=== PATIENT | female | born 1985 | race Caucasian/White ===

== ENCOUNTER 2017-02-21 13:45 | Emergency (ER) | payer MEDICAID ==
[~2017-02-21] VITALS: Ht 162.6 cm; Wt 58.3 kg
[~2017-02-21 13:45] MED LIST: IBUP600 PO; OXYC1SOL5 PO; PERI8.6T PO; PRENCAP35 PO; RANI150 PO
[2017-02-21 13:54] VITALS: BP 134/69; PULSE 74; RESP 16; TEMP 98; O2SAT 99
--- NOTE | 2017-02-21 14:34 | PD ---
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 SHe says that she had intercourse last night. When she got up this morning she noted there was some blood in her hands. Been having right lower quadrant pain. The pain has been quite severe. He has a history of 2 C-sections and has 2 children. She has had an ectopic and has had tubal ligation. She has also had appendectomy done. The pain she is having is greater on the right side. He had an ultrasound of the pelvis on January 29 that showed that she had a 2.5 cm complicated cyst on the left ovary. Was otherwise negative. She has a history of endometriosis PFSH Past Medical History Asthma: Yes Blood Disorders: No Depression: Yes Heart Rhythm Problems: No Cancer: Yes High Cholesterol: No Chemotherapy: No Chest Pain: No Congestive Heart Failure: No COPD: No Cerebrovascular Accident: No Diminished Hearing: No Endocrine: No Gastrointestinal Disorders: Yes GERD: Yes Headaches: Yes (migraines) Hepatitis: No Hiatal Hernia: No Hypertension: No Immune Disorder: No Kidney Stones: No Musculoskeletal: Yes (injury from horse- FX LEFT SHOULDER/LEFT ANKLE) Neurologic: No Psychiatric: No Respiratory: No Integumentary: Yes (ECZEMA) Immunizations Current: Yes Radiation Therapy: No Renal Failure: No Seizures: Yes (apr 11 2004 last seizure) Sickle Cell Disease: No Sleep Apnea: No Thyroid Disease: Yes (HX OF HYPER ACTIVE THYROID) Ulcer: No ?: Not LMP: 02/07/17 : 3 Para: 1 Miscarriage: 1 : 1 Ectopic : Yes Past Surgical History Abdominal Surgery: Yes AICD: No Appendectomy: Yes Cardiac Surgery: No Section: Yes Ear Surgery: No Endocrine Surgery: No Eye Surgery: No Genitourinary Surgery: No Gynecologic Surgery: Yes (R SALPINGECTOMY 08-13-13) Neurologic Surgery: No Oral Surgery: No Pacemaker: No Thoracic Surgery: No Other Surgery: Yes Social History Alcohol Use: No Tobacco Use: Yes (half pack cigarettes a day for the entire ) Substance Use: No Allergies-Medications (Allergen,Severity, Reaction): Coded Allergies: penicillin G (Unverified Allergy, Severe, ITCHING, HIVES, anaphylaxis, 02/21/17) cyclobenzaprine (Unverified Allergy, Unknown, NAUSEA/VOMITTING, 02/21/17) Reported Meds & Prescriptions Reported Meds & Active Scripts Active Review of Systems General / Constitutional: No: Fever, Chills Eyes: No: Diploplia, Blurred Vision HENT: No: Headaches, Vertigo Cardiovascular: No: Chest Pain or Discomfort, Palpitations Respiratory: No: Cough, Shortness of Breath Gastrointestinal: No: Nausea, Vomiting Genitourinary: Positive: Pelvic Pain, Vaginal Bleeding, No: Urgency, Frequency Physical Exam Narrative GENERAL well-developed female SKIN: Focused skin assessment warm/dry. HEAD: Atraumatic. Normocephalic. EYES: Pupils equal and round. No scleral icterus. No injection or drainage. ENT: No nasal bleeding or discharge. Mucous membranes pink and moist. NECK: Trachea midline. No JVD. CARDIOVASCULAR: Regular rate and rhythm. No murmur appreciated. RESPIRATORY: No accessory muscle use. Clear to auscultation. Breath sounds equal bilaterally. GASTROINTESTINAL: Abdomen soft, non-tender, nondistended. Hepatic and splenic margins not palpable. Pelvic: There is some suprapubic tenderness. There is a small amount of blood coming from the cervical os. There is some pain with movement of the cervix. No definite adnexal mass MUSCULOSKELETAL: No obvious deformities. No clubbing. No cyanosis. No edema. NEUROLOGICAL: Awake and alert. No obvious cranial nerve deficits. Motor grossly within normal limits. Normal speech. PSYCHIATRIC: Appropriate mood and affect; insight and judgment normal. 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/Non-Preg (02/21/17 14:35) Beta Hcg (Quant/Titer) (02/21/17 14:20) Ketorolac Inj (Toradol Inj) (02/21/17 15:30) Labs Laboratory Tests Test 02/21/17 14:37 White Blood Count 10.0 TH/MM3 Red Blood Count 4.13 MIL/MM3 Hemoglobin 13.0 GM/DL Hematocrit 37.7 % Mean Corpuscular Volume 91.2 FL Mean Corpuscular Hemoglobin 31.4 PG Mean Corpuscular Hemoglobin Concent 34.4 % Red Cell Distribution Width 11.9 % Platelet Count 190 TH/MM3 Mean Platelet Volume 8.2 FL Neutrophils (%) (Auto) 71.8 % Lymphocytes (%) (Auto) 18.2 % Monocytes (%) (Auto) 8.5 % Eosinophils (%) (Auto) 1.0 % Basophils (%) (Auto) 0.5 % Neutrophils # (Auto) 7.3 TH/MM3 Lymphocytes # (Auto) 1.8 TH/MM3 Monocytes # (Auto) 0.8 TH/MM3 Eosinophils # (Auto) 0.1 TH/MM3 Basophils # (Auto) 0.0 TH/MM3 CBC Comment DIFF FINAL Differential Comment Blood Urea Nitrogen 16 MG/DL Creatinine 0.62 MG/DL Random Glucose 98 MG/DL Calcium Level 8.1 MG/DL Sodium Level 138 MEQ/L Potassium Level 3.6 MEQ/L Chloride Level 105 MEQ/L Carbon Dioxide Level 27.1 MEQ/L Anion Gap 6 MEQ/L Estimat Glomerular Filtration Rate 112 ML/MIN Human Chorionic Gonadotropin, Quant LESS THAN 1 MIU/ML MDM Medical Decision Making Medical Screen Exam Complete: Yes Emergency Medical Condition: Yes Medical Record Reviewed: Yes Differential Diagnosis Differential includes PID, ruptured cyst, ectopic Narrative Course Her beta hCG is less than 1. Hemoglobin is 13 with a white count of 10,000. Presentation is most consistent with a ruptured cyst. Diagnosis Primary Impression: Ovarian cyst Jim Bailon MD Feb 21, 2017 14:34
[2017-02-21 14:43] LABS: AUTOMATED NEUTROPHIL # 7.3 TH/MM3 (1.8-7.7); BASOPHIL % 0.5 % (0.0-2.0); EOSINOPHIL # 0.1 TH/MM3 (0-0.4); HEMATOCRIT 37.7 % (35.0-46.0); HEMO FLAGS DIFF FINAL; LYMPH % 18.2 % (9.0-44.0); LYMPHOCYTE # 1.8 TH/MM3 (1.0-4.8); MEAN CELL VOLUME 91.2 FL (80.0-100.0); MEAN CORPUSCULAR HEMOGLOBIN 31.4 PG (27.0-34.0); MEAN CORPUSCULAR HGB CONC 34.4 % (32.0-36.0); MONO % 8.5 % (0.0-8.0); NEUT % 71.8 % (16.0-70.0); PLATELET COUNT 190 TH/MM3 (150-450); RED BLOOD COUNT 4.13 MIL/MM3 (4.00-5.30); RED CELL DISTRIBUTION WIDTH 11.9 % (11.6-17.2)
[2017-02-21 14:57] LABS: CHLORIDE 105 MEQ/L (98-107); POTASSIUM 3.6 MEQ/L (3.5-5.1); SODIUM (NA) 138 MEQ/L (136-145)
[2017-02-21 15:00] LABS: ANION GAP 6 MEQ/L (5-15); BICARBONATE 27.1 MEQ/L (21.0-32.0); BLOOD UREA NITROGEN 16 MG/DL (7-18)
[2017-02-21 15:03] LABS: GLOMERULAR FILTRATION RATE 112 ML/MIN (>89)
[2017-02-21 15:08] LABS: BETA HCG QUANT LESS THAN 1 MIU/ML (0-5)
[2017-02-21] MEDS ORDERED: KETOROLAC TROMETHAMINE 30 MG/ML (IVP) VIAL IV PUSH ONE (15:30)
[2017-02-21] MEDS ORDERED: HYDR-3516 PO (15:46)
--- NOTE | 2017-02-21 16:15 | RADRPT ---
EXAM DATE/TIME: 02/21/2017 14:52 [facility] COMPARISON: US PELVIS, PREG, W/TRANSVAGINAL, August 24, 2005, 0:36. EXTERNAL COMPARISON : [facility], US PELVIS - COMPLETE, January 29, 2017 INDICATIONS : Pelvic bleeding. MEDICAL HISTORY : Hyperthyroidism. Endometriosis. Seizures. Syncope. Migraines. Asthma. GERD. Ectopic . PT SD. Eczema. Cancer. SURGICAL HISTORY : Appendectomy. section. Tubal ligation. Right salpingectomy. ENCOUNTER: Initial ACUITY: 1 day PAIN SCORE: 10/10 LOCATION: Bilateral pelvis MEASUREMENTS: UTERUS: 8.3 x 5.7 x 3.4 cm ENDOMETRIAL STRIPE: 8 mm RIGHT OVARY: 2.7 x 1.8 x 2.5 cm LEFT OVARY: 2.6 x 2.0 x 1.7 cm FINDINGS: UTERUS: The myometrium has homogeneous echotexture without mass. RIGHT OVARY: Ovary contains no mass or significant cystic lesion. Follicles are present. LEFT OVARY: Ovary contains no mass or significant cystic lesion. Follicles are present. MISCELLANEOUS: There is trace free fluid in the posterior cul-de-sac. Urinary bladder is under distended. CONCLUSION: 1. The urinary bladder is underdistended resulting in less than optimal visualization of the pelvic o rgans. 2. There is trace free fluid in the posterior cul-de-sac. Otherwise, examination is within normal laughlin its. Harrison Kumar MD on February 21, 2017 at 16:11 Board Certified Radiologist. This report was verified electronically.
--- NOTE | 2017-02-21 16:28 | PD ---
Physical Exam Date Seen by Provider: Feb 21, 2017 Time Seen by Provider: 16:26 Narrative 31-year-old female came to the emergency room for vaginal bleeding and pelvic pain. She was seen by the previous ER physician. Please refer to his history and physical regarding further details. Case was signed out to me to follow-up on her ultrasound results. The ultrasound report is read by the radiologist which shows some fluid in the cul-de-sac. Patient has history of ovarian cysts as of an ultrasound 4 months ago. Today the report did not treat any cyst. There is a possibility that the cyst has ruptured. I informed the patient about the report. She will be discharged home. Data Data Last Documented VS Vital Signs Date Time Temp Pulse Resp B/P (MAP) Pulse Ox O2 Delivery O2 Flow Rate FiO2 02/21/17 16:53 81 18 122/78 (93) 99 02/21/17 13:54 98.0 Orders Orders Complete Blood Count With Diff (02/21/17 14:20) Basic Metabolic Panel (Bmp) (02/21/17 14:20) Ed Urine Pregnancytest Poc (02/21/17 14:20) Us Pelvis Comp Wrapper Stripper/Non-Preg (02/21/17 14:35) Beta Hcg (Quant/Titer) (02/21/17 14:20) Ketorolac Inj (Toradol Inj) (02/21/17 15:30) Ed Discharge Order (02/21/17 16:25) Labs Laboratory Tests Test 02/21/17 14:37 White Blood Count 10.0 TH/MM3 Red Blood Count 4.13 MIL/MM3 Hemoglobin 13.0 GM/DL Hematocrit 37.7 % Mean Corpuscular Volume 91.2 FL Mean Corpuscular Hemoglobin 31.4 PG Mean Corpuscular Hemoglobin Concent 34.4 % Red Cell Distribution Width 11.9 % Platelet Count 190 TH/MM3 Mean Platelet Volume 8.2 FL Neutrophils (%) (Auto) 71.8 % Lymphocytes (%) (Auto) 18.2 % Monocytes (%) (Auto) 8.5 % Eosinophils (%) (Auto) 1.0 % Basophils (%) (Auto) 0.5 % Neutrophils # (Auto) 7.3 TH/MM3 Lymphocytes # (Auto) 1.8 TH/MM3 Monocytes # (Auto) 0.8 TH/MM3 Eosinophils # (Auto) 0.1 TH/MM3 Basophils # (Auto) 0.0 TH/MM3 CBC Comment DIFF FINAL Differential Comment Blood Urea Nitrogen 16 MG/DL Creatinine 0.62 MG/DL Random Glucose 98 MG/DL Calcium Level 8.1 MG/DL Sodium Level 138 MEQ/L Potassium Level 3.6 MEQ/L Chloride Level 105 MEQ/L Carbon Dioxide Level 27.1 MEQ/L Anion Gap 6 MEQ/L Estimat Glomerular Filtration Rate 112 ML/MIN Human Chorionic Gonadotropin, Quant LESS THAN 1 MIU/ML MDM Supervised Visit with CAMELIA: No Diagnosis Primary Impression: Ovarian cyst Additional Instruction: Please follow-up with your RN MED SURG. Take the medication as per the prescription direction. Medication will make you groggy. You should not drive while on the medication. Return to the ER if the condition worsens or any other new concerns. Scripts Hydrocodone/Acetaminophen (Hydrocodone-Acetamin 5-325 mg) 5 Mg-325 Mg Tablet 1-2 TAB PO Q4HR for Pain, #20 Prov: Jim Bailon MD 02/21/17 Disposition: 01 DISCHARGE HOME Condition: Stable Amara Gibson MD Feb 21, 2017 16:28
[2017-02-21 16:53] VITALS: BP 122/78
[2017-03-05] MEDS ORDERED: NORE1TAB60 PO (13:30)
== END 2017-02-21 16:53 | disposition home or self-care (01) ==
LOC: PHED 13:45
DX: N83.209 Unspecified ovarian cyst, unspecified side (principal)
CPT/HCPCS: 76856; 80048; 84702; 84703; 85025; 96374; 99285; J1885